=== PATIENT | female | born 1960 | race Caucasian/White ===

== ENCOUNTER 2017-11-03 06:51 | Day surgery (SDC) | payer BC ==
[2017-11-03] MEDS ORDERED: Propofol 10 mg/ml Inj (20 ML) ONE ×3 (08:27→08:49)
[2017-11-03] MEDS ORDERED: Lidocaine 1% Inj (20ml) ONE (08:27)
[2017-11-03] MEDS ORDERED: Sodium Chloride 0.9% 1,000 ML IV SCH (09:15)
[2017-11-03 10:00] VITALS: BP 131/74; PULSE 52; RESP 16; TEMP 97.9; O2SAT 96
== END 2017-11-03 10:13 | disposition home or self-care (01) ==
LOC: ENDO 06:51
PROVIDERS: ATTEND Specialist
DX: Z12.11 Encounter for screening for malignant neoplasm of colon (principal); K63.5 Polyp of colon; K64.8 Other hemorrhoids; I10 Essential (primary) hypertension
CPT/HCPCS: 45380; 88305; J2704; J7030; J7040